=== PATIENT | male | born 1995 | race Caucasian/White ===

== ENCOUNTER 2022-11-05 06:59 | Emergency (ER) | payer OTHER ==
[~2022-11-05] VITALS: Ht 182.9 cm; Wt 100.0 kg
[~2022-11-05 06:59] MED LIST: AMOXICILLIN500 MG PO; BICILLIN L1.2 MU/SYR IM; CEPHALEXIN500 MG PO; EC-NAPROSYN500 MG OR; NAPROSYN500 MG PO; NO HOME MEDS; NORCO1 TA1 PO; ZITHROMAX250 MG PO; ZOFRAN4 MG PO
[2022-11-05 07:42] VITALS: BP 127/74
[2022-11-05 07:45] VITALS: BP 126/85
[2022-11-05 08:00] VITALS: BP 131/75
[2022-11-05 08:15] VITALS: BP 135/79
[2022-11-05] MEDS ORDERED: CIPROFLOXACN0.3 % OD (08:24)
[2022-11-05 08:31] VITALS: BP 118/74
== END 2022-11-05 08:37 | disposition home or self-care (01) | DRG 115 ==
LOC: ED 06:59
PROC: 08C8XZZ Extirpation of Matter from Right Cornea, External Approach (ICD-10-PCS; principal; 2022-11-05)
DX: T15.01XA Foreign body in cornea, right eye, initial encounter (principal); X58.XXXA Exposure to other specified factors, initial encounter; Y93.89 Activity, other specified; Y92.89 Other specified places as the place of occurrence of the external cause; Y99.0 Civilian activity done for income or pay